=== PATIENT | female | born 1985 | race Two or more races ===

== ENCOUNTER 2018-05-05 21:45 | Emergency (ER) | payer BC ==
[~2018-05-05] VITALS: Ht 152.4 cm; Wt 72.6 kg
[2018-05-05 21:53] VITALS: BP 131/92
[2018-05-05] MEDS ORDERED: cefTRIAXone SOD 1,000 MG VL IM ONE (22:30)
[2018-05-05] MEDS ORDERED: methylPREDNISolone SOD SUCC 125 MG/2 ML VL IM ONE (23:00)
== END 2018-05-06 00:41 | disposition home or self-care (01) ==
LOC: ER 21:45
DX: J06.9 Acute upper respiratory infection, unspecified (principal)
CPT/HCPCS: 36415; 84702; 96372; 99283; J0696; J2930